=== PATIENT | female | born 1935 | race Caucasian/White ===

== ENCOUNTER → 2016-07-16 | Outpatient (CLI) | payer MEDICARE, BC ==
[2016-07-16 20:18] LABS: ALT 27 U/L (9-52); AST 27 U/L (14-36); Alkaline Phosphatase 73 U/L (38-126); Anion Gap 8 mmol/L; Blood Urea Nitrogen 14 mg/dL (7-17); Calcium 9.3 mg/dL (8.4-10.2); Carbon Dioxide 26 mmol/L (22-30); Chloride 108 mmol/L (98-107); Glucose 90 mg/dL (74-99); Non-African American GFR(MDRD) 60 (>60 ml/min/1.73 sqM); Potassium 4.4 mmol/L (3.5-5.1); Sodium 142 mmol/L (137-145); Total Bilirubin 0.4 mg/dL (0.2-1.3); Total Protein 6.9 g/dL (6.3-8.2)
--- NOTE | 2016-07-16 20:33 | XR ---
EXAMINATION TYPE: XR chest 2V DATE OF EXAM: 07/16/2016 8:05 PM COMPARISON: 03/26/2016 HISTORY: Follow-up renal cancer TECHNIQUE: Frontal and lateral views of the chest are obtained. FINDINGS: There is no heart failure nor confluent pneumonic infiltrate. There are no hilar masses. T horacic aorta is atheromatous. There are clips from right mastectomy. There is no pleural effusion. B ones are osteopenic. IMPRESSION: No active cardiopulmonary disease. No change.
--- NOTE | 2016-07-16 20:36 | CT ---
EXAMINATION TYPE: CT abdomen wo con DATE OF EXAM: 07/16/2016 8:04 PM COMPARISON: NONE HISTORY: Follow-up from right nephrectomy following kidney cancer. CT DLP: 164.80 mGycm Automated exposure control for dose reduction was used. TECHNIQUE: Helical acquisition of images was performed from the lung bases through the top of iliac crest to include entire abdomen. CONTRAST: Performed without Oral Contrast and without IV contrast. FINDINGS: The lung bases are clear of infiltrate. There is no pleural effusion. Liver spleen pancreas appear no rmal. Bile ducts are not dilated. There are multiple calcified gallstones. There is no adrenal mass. There are clips from right nephrectomy. Left kidney shows normal size and c ontour. There is no hydronephrosis. There is no retroperitoneal adenopathy. I see no evidence of a chris wel obstruction. There are spondylotic changes in the lumbar spine. I see no focal bone destruction. IMPRESSION: RIGHT NEPHRECTOMY. ATHEROSCLEROTIC VASCULAR DISEASE. GALLSTONES. NO EVIDENCE OF METASTATIC DISEASE.
== END | disposition home or self-care (01) ==
LOC: RADCTMAIN 19:34
PROVIDERS: ATTEND Urology
DX: C64.1 Malignant neoplasm of right kidney, except renal pelvis (principal); Z90.5 Acquired absence of kidney
CPT/HCPCS: 36415; 71020; 74150; 80053

== ENCOUNTER → 2017-05-10 | Outpatient (CLI) | payer MEDICARE, BC ==
[2017-05-10 09:55] LABS: ALT 29 U/L (9-52); AST 29 U/L (14-36); Albumin 4.4 g/dL (3.5-5.0); Alkaline Phosphatase 73 U/L (38-126); Anion Gap 12 mmol/L; Blood Urea Nitrogen 14 mg/dL (7-17); Calcium 9.8 mg/dL (8.4-10.2); Carbon Dioxide 27 mmol/L (22-30); Chloride 105 mmol/L (98-107); Creatine Kinase 55 U/L (30-135); Glucose 113 mg/dL (74-99); Magnesium 1.9 mg/dL (1.6-2.3); Potassium 4.5 mmol/L (3.5-5.1); Sodium 144 mmol/L (137-145); Total Bilirubin 0.5 mg/dL (0.2-1.3); Total Protein 7.3 g/dL (6.3-8.2)
[2017-05-10 10:08] LABS: Creatine Kinase MB 1.1 ng/mL (0.0-2.4); Troponin I <0.012 ng/mL (0.000-0.034)
[2017-05-11 15:27] LABS: Vitamin D 25 Hydroxy 23.2 ng/mL (30.0-100.0)
== END | disposition home or self-care (01) ==
LOC: LABMAIN 08:33
PROVIDERS: ATTEND Emergency Medicine
DX: R00.2 Palpitations (principal)
CPT/HCPCS: 36415; 80053; 82306; 82550; 82553; 82607; 83735; 84484

== ENCOUNTER → 2017-06-28 | Outpatient (CLI) | payer MEDICARE, BC ==
--- NOTE | 2017-06-28 10:03 | ECHOF ---
Referral Reason:I25.6 Silent myocardial ischemia, M81.0 MEASUREMENTS -------- HEIGHT: 162.6 cm WEIGHT: 58.1 kg BP: 169/75 RVIDd: 2.7 cm (< 3.3) IVSd: 1.0 cm (0.6 - 1.1) LVIDd: 3.6 cm (3.9 - 5.3) LVPWd: 1.1 cm (0.6 - 1.1) IVSs: 1.3 cm LVIDs: 1.8 cm LVPWs: 1.3 cm LAESV Index (A-L): 28.15 ml/m Ao Diam: 2.6 cm (2.0 - 3.7) AV Cusp: 2.8 cm (1.5 - 2.6) MV EXCURSION: 13.536 mm (> 18.000) MV EF SLOPE: 29 mm/s (70 - 150) EPSS: 0.6 cm MV E Benotn: 0.60 m/s MV DecT: 203 ms MV A Benton: 0.96 m/s MV E/A Ratio: 0.63 AR PHT: 594 ms RAP: 5.00 mmHg RVSP: 12.99 mmHg FINDINGS -------- Sinus rhythm. This was a technically good study. The left ventricular size is normal. Left ventricular wall thickness is normal. Overall left vent ricular systolic function is normal with, an EF between 55 - 60 %. The right ventricle is normal in size and function. Normal LA size by volume 22+/-6 ml/m2. The right atrium is normal in size. Aortic valve is trileaflet and is mildly thickened. There is mild aortic regurgitation. The mitral valve leaflets are mildly thickened. Mild mitral annular calcification present. Mild m itral regurgitation is present. Trace tricuspid regurgitation present. The right ventricular systolic pressure, as measured by Dopp ler, is 12.99mmHg. Pulmonic valve appears structurally normal. The aortic root size is normal. Normal inferior vena cava with normal inspiratory collapse consistent with estimated right atrial pre ssure of 5 mmHg. The pericardium is normal. CONCLUSIONS -------- 1. Sinus rhythm. 2. This was a technically good study. 3. The left ventricular size is normal. 4. Left ventricular wall thickness is normal. 5. Overall left ventricular systolic function is normal with, an EF between 55 - 60 %. 6. The right ventricle is normal in size and function. 7. Normal LA size by volume 22+/-6 ml/m2. 8. The right atrium is normal in size. 9. Aortic valve is trileaflet and is mildly thickened. 10. There is mild aortic regurgitation. 11. The mitral valve leaflets are mildly thickened. 12. Mild mitral annular calcification present. 13. Mild mitral regurgitation is present. 14. Trace tricuspid regurgitation present. 15. The right ventricular systolic pressure, as measured by Doppler, is 12.99mmHg. 16. Pulmonic valve appears structurally normal. 17. The aortic root size is normal. 18. Normal inferior vena cava with normal inspiratory collapse consistent with estimated right atrial pressure of 5 mmHg. 19. The pericardium is normal. PERSONNEL MONITOR: Belkys Abel RDCS
== END | disposition home or self-care (01) ==
LOC: RADECHMAIN 07:14
PROVIDERS: ATTEND Family Medicine
DX: I08.0 Rheumatic disorders of both mitral and aortic valves (principal)
CPT/HCPCS: 93306

== ENCOUNTER → 2017-07-01 | Outpatient (CLI) | payer MEDICARE, BC ==
--- NOTE | 2017-07-01 16:30 | BD ---
EXAMINATION TYPE: MG DEXA axial skeleton. DATE OF EXAM: 07/01/2017 CLINICAL HISTORY: 82-year-old female osteoporosis without pathologic fracture Height: 61.5 Weight: 127 FRAX RISK QUESTIONS: Alcohol (3 or more units per day): no Family History (Parent hip fracture): no Glucocorticoids (More than 3mos): no (Ex: prednisone, prednisolone, methylprednisolone, dexamethasone, and hydrocortisone). History of Fracture in Adulthood: no Secondary Osteoporosis: 1. Type 1 Diabetes: no 2. Hyperthyroidism: no 3. Menopause before 45: no 4. Malnutrition: no 5. Chronic liver disease: no Rheumatoid Arthritis: no Current Tobacco Use: no RISK FACTORS HISTORY OF: Family History of Osteoporosis: no Active: yes Diet low in dairy products/other sources of calcium: somewhat- several servings during week Postmenopausal woman: yes Take estrogen and/or progesterone medications: no Lost more than 2 inches in height since high school: possibly..patient states height may have been ab out 64 inches at one time Frequent falls: no Poor Health: no Hyperparathyroidism: no Adrenal Insufficiency: no MEDICATIONS: Prednisone or other steroids: no Thyroid Medications: no Osteoporosis Medications: no Additional Medications: aspirin Additional History: kidney CA- kidney removed about 2 years ago EXAM MEASUREMENTS: Bone mineral densitometry was performed using the [employer]. Bone mineral density as measured about the Lumbar spine is: ----- L1-L4(G/cm2): 1.147 T Score Values are as follows: ----- L2: -0.7 ----- L3: 0.0 ----- L4: -0.6 ----- L1-L4: -0.3 Bone mineral density not previously done at this facility- previously done at physician office Bone mineral density about the R hip (g/cm2): 0.822 Bone mineral density about the L hip (g/cm2): 0.769 T Score values are as follows: -----R Neck: -1.6 -----L Neck: -1.9 -----R Total: -0.4 -----L Total: -0.7 Bone mineral density not previously done at this facility- previously done at physician office IMPRESSION: Osteopenia (T Score between -2.5 and -1). There is slightly increased risk of fracture and the patient may be considered for treatment. Re-Screen 2-5 years. NOTE: T-SCORE=SD OF THE YOUNG ADULT MEAN.
== END | disposition home or self-care (01) ==
LOC: RADBDWWP 07:47
PROVIDERS: ATTEND Family Medicine
DX: M85.88 Other specified disorders of bone density and structure, other site (principal)
CPT/HCPCS: 77080

== ENCOUNTER → 2018-01-22 | Outpatient (CLI) | payer MEDICARE, BC ==
[2018-01-22 11:24] LABS: Basophils # (A) 0.1 k/uL (0-0.2); Basophils % (A) 1 %; Eosinophils # (A) 0.4 k/uL (0-0.7); Eosinophils % (A) 5 %; HCT 42.1 % (34.0-46.0); HGB 13.6 gm/dL (11.4-16.0); Lymphocytes # (A) 2.1 k/uL (1.0-4.8); Lymphocytes % (A) 27 %; MCH 29.1 pg (25.0-35.0); MCHC 32.3 g/dL (31.0-37.0); Monocytes # (A) 0.4 k/uL (0-1.0); Monocytes % (A) 6 %; Neutrophils # (A) 4.5 k/uL (1.3-7.7); Neutrophils % (A) 59 %; Platelet Count 248 k/uL (150-450); RBC 4.68 m/uL (3.80-5.40); RDW 13.4 % (11.5-15.5); WBC 7.7 k/uL (3.8-10.6)
[2018-01-22 17:26] LABS: Albumin 4.5 g/dL (3.80-4.90); Albumin/Globulin Ratio 2.25 (1.20-2.10); Anion Gap 8.7 mmol/L (4.00-12.00); Calcium 9.2 mg/dL (8.7-10.3); Carbon Dioxide 26.3 mmol/L (21.6-31.8); LDL Cholesterol,Calculated 118.4 mg/dL (0.0-131.0); Potassium 4.4 mmol/L (3.5-5.5); Total Bilirubin 0.5 mg/dL (0.3-1.2); Total Protein 6.5 g/dL (6.2-8.2); VLDL Calculation 37.6 mg/dL (5.00-40.00)
[2018-01-22 17:28] LABS: Vitamin D 25 Hydroxy 32.2 ng/mL (30.0-100.0)
[2018-01-22 17:33] LABS: T4, Free (Free Thyroxine) 1.1 ng/dL (0.80-1.80)
[2018-01-22 21:13] LABS: Hemoglobin A1C 5.8 % (4.0-6.0)
== END | disposition home or self-care (01) ==
LOC: LABWHC1 09:39
PROVIDERS: ATTEND Family Medicine
DX: Z00.00 Encounter for general adult medical examination without abnormal findings (principal); E78.5 Hyperlipidemia, unspecified; E55.9 Vitamin D deficiency, unspecified; R03.0 Elevated blood-pressure reading, without diagnosis of hypertension; R73.01 Impaired fasting glucose
CPT/HCPCS: 36415; 80053; 80061; 82306; 82607; 83036; 84439; 84443; 85025

== ENCOUNTER → 2018-04-18 | Outpatient (CLI) | payer MEDICARE, BC ==
--- NOTE | 2018-04-18 10:32 | XR ---
EXAMINATION TYPE: XR chest 2V DATE OF EXAM: 04/18/2018 COMPARISON: Chest x-ray January 28, 2017 HISTORY: Kidney cancer. TECHNIQUE: Frontal and lateral views of the chest are obtained. FINDINGS: There is chronic parenchymal change without suspicious focal air space opacity, pleural ef fusion, or pneumothorax seen. The cardiac silhouette size is mildly enlarged. Numerous surgical cli ps from right-sided mastectomy are redemonstrated. Surgical clips in the right abdomen from nephrecto my are partially imaged. The osseous structures are intact. IMPRESSION: No acute cardiopulmonary process. No significant change from prior.
--- NOTE | 2018-04-18 12:03 | CT ---
EXAMINATION TYPE: CT abdomen wo con DATE OF EXAM: 04/18/2018 HISTORY: Right kidney cancer, removed [address] DLP: 174.9 mGycm. Automated Exposure Control for Dose Reduction was Utilized. TECHNIQUE: CT scan of the abdomen is performed with oral but without IV contrast. COMPARISON: CT abdomen July 16, 2016 FINDINGS: Within the limitations of a non-contrast study, the following observations are made. LUNG BASES: Cardiomegaly is redemonstrated. There is partial visualization of coronary artery calcifi cation and/or stent in the RCA distribution similar to prior. LIVER/GB: Numerous large calcified gallstones in gallbladder again seen. PANCREAS: No significant abnormality is seen. SPLEEN: No significant abnormality is seen. ADRENALS: No significant abnormality is seen. KIDNEYS: Numerous clips from right-sided nephrectomy are redemonstrated. No suspicious recurrent mass is present. BOWEL: Small hiatal hernia is noted. Stomach is felt within normal limits. Duodenal sweep and proxima l small bowel loops are poorly opacified making evaluation suboptimal. Oral contrast extends to hepat ic flexure. There is no suspicious small or large bowel dilatation. LYMPH NODES: No greater than 1cm abdominal lymph nodes are appreciated. OSSEOUS STRUCTURES: There is multilevel vacuum disc phenomenon and disc space narrowing throughout th e thoracolumbar spine with multilevel spurring. Most prominent spinal canal effacement is L3-L4 level due to disc herniation and facet arthropathy axial image 40. Slight spondylolisthesis is seen in low er lumbar levels without pars defect. OTHER: Mild to moderate calcified plaque of aorta extends into branch vessels. IMPRESSION: No recurrent mass or adenopathy identified to suggest neoplastic recurrence. No significa nt change from prior CT.
== END ==
LOC: RADCTMAIN 09:59
PROVIDERS: ATTEND Urology
DX: C64.1 Malignant neoplasm of right kidney, except renal pelvis (principal)
CPT/HCPCS: 71046; 74150

== ENCOUNTER → 2019-04-10 | Outpatient (CLI) | payer MEDICARE, BC ==
--- NOTE | 2019-04-10 17:18 | XR ---
EXAMINATION TYPE: XR chest 2V DATE OF EXAM: 04/10/2019 COMPARISON: Prior chest x-ray 04/18/2018 HISTORY: Renal cancer TECHNIQUE: Frontal and lateral views of the chest are obtained. FINDINGS: There is no significant change. IMPRESSION: Postop changes. No acute cardiopulmonary disease.
== END | disposition home or self-care (01) ==
LOC: RADXRMAIN 16:17
PROVIDERS: ATTEND Urology
DX: Z08 Encounter for follow-up examination after completed treatment for malignant neoplasm (principal); Z85.528 Personal history of other malignant neoplasm of kidney; Z98.890 Other specified postprocedural states
CPT/HCPCS: 71046

== ENCOUNTER → 2019-04-10 | Outpatient (CLI) | payer MEDICARE, BC ==
--- NOTE | 2019-04-11 09:25 | MM ---
Reason for exam: additional evaluation requested from prior study. Last mammogram was performed 17 years and 9 months ago. History: Patient is postmenopausal, has history of other cancer at age 79, and has history of breast cancer at age 69. Family history of breast cancer in sister at age 50 and breast cancer in mother at age 60. Lumpectomy of the left breast, 2014. Radiation therapy of the left breast, 2013. Mastectomy of the right breast, 2005. Physical Findings: Nurse did not find any significant physical abnormalities on exam. MG 3D Diag Mammo W/Cad LT CC, MLO, and XCCL view(s) were taken of the left breast. Prior study comparison: April 08, 2018, mammogram. There are scattered fibroglandular densities. Benign appearing calcifications in the left breast. Left axillary lymph nodes were not seen on the prior as XCCL was not performed. Ultrasound will be performed to evaluate cortical thickness. These results were verbally communicated with the patient and result sheet given to the patient on 04/10/19. ASSESSMENT: Incomplete: need additional imaging evaluation, BI-RAD 0 RECOMMENDATION: Ultrasound of the left breast. (axilla)
--- NOTE | 2019-04-11 09:26 | USB ---
Reason for exam: additional evaluation requested from abnormal screening. History: Patient is postmenopausal, has history of other cancer at age 79, and has history of breast cancer at age 69. Family history of breast cancer in sister at age 50 and breast cancer in mother at age 60. Lumpectomy of the left breast, 2013. Radiation therapy of the left breast, 2013. Mastectomy of the right breast, 2005. US Breast Limited LT Left limited breast ultrasound including focal area of concern, retroareolar and axilla demonstrates a 0.8 x 0.5 x 0.9cm lymph node at 1 o'clock, morphologically normal, non-enlarged. 1 o'clock lumpectomy site, avascular. These results were verbally communicated with the patient and result sheet given to the patient on 04/10/19. ASSESSMENT: Benign, BI-RAD 2 RECOMMENDATION: Follow-up diagnostic mammogram of the left breast in 1 year.
== END | disposition home or self-care (01) ==
LOC: LABWHC1 14:56
PROVIDERS: ATTEND Surgery
DX: Z08 Encounter for follow-up examination after completed treatment for malignant neoplasm (principal); R92.8 Other abnormal and inconclusive findings on diagnostic imaging of breast; Z85.3 Personal history of malignant neoplasm of breast
CPT/HCPCS: 77065; 76642; G0279; 71046; 77061

== ENCOUNTER → 2019-09-13 | Outpatient (CLI) | payer MEDICARE, BC ==
--- NOTE | 2019-09-13 14:35 | BD ---
EXAMINATION TYPE: Axial Bone Density DATE OF EXAM: 09/13/2019 COMPARISON: NONE CLINICAL HISTORY: 84-year-old female postmenopausal screening without HRT Nuclear Medicine Study in the last 2 weeks: NO Barium Study in the last week: NO : NO Height: 5 FT 2 IN Weight: 121 FRAX RISK QUESTIONS: Alcohol (3 or more units per day): NO Family History (Parent hip fracture): NO Glucocorticoids (More than 3mos): NO (Ex: prednisone, prednisolone, methylprednisolone, dexamethasone, and hydrocortisone). History of Fracture in Adulthood: NO Secondary Osteoporosis: 1. Type 1 Diabetes: NO 2. Hyperthyroidism: NO 3. Menopause before 45: NO 4. Malnutrition: NO 5. Chronic liver disease: NO Rheumatoid Arthritis: NO Current Tobacco Use: NO RISK FACTORS HISTORY OF: Active: YES Postmenopausal woman: AGE 47 MEDICATIONS: Additional Medications: NONE Additional History: EXAM MEASUREMENTS: Bone mineral densitometry was performed using the [employer] System. Bone mineral density as measured about the Lumbar spine is: ----- L1-L4(G/cm2): 1.167 T Score Values are as follows: ----- L2: -0.2 ----- L3: -0.1 ----- L4: -0.7 ----- L1-L4: -0.1 Bone mineral density has: INCREASED 1.0 % since study of: 2018 Bone mineral density about the R hip (g/cm2): 0.800 Bone mineral density about the L hip (g/cm2): 0.780 T Score values are as follows: -----R Neck: -1.7 -----L Neck: -1.9 -----R Total: -0.7 -----L Total: -0.8 Bone mineral density has: DECREASED -2.5 % since study of: 2018 IMPRESSION: Osteopenia (T Score between -2.5 and -1). There is slightly increased risk of fracture and the patient may be considered for treatment. Re-Screen 2-5 years. NOTE: T-SCORE=SD OF THE YOUNG ADULT MEAN.
== END | disposition home or self-care (01) ==
LOC: RADBDWWP 09:44
PROVIDERS: ATTEND Surgery
DX: Z13.820 Encounter for screening for osteoporosis (principal); Z78.0 Asymptomatic menopausal state
CPT/HCPCS: 77080

== ENCOUNTER → 2020-03-18 | Outpatient (CLI) | payer MEDICARE, BC | END | disposition home or self-care (01) | LOC: LABMAIN 16:09 | PROVIDERS: ATTEND Family Medicine | DX: Z20.828 Contact with and (suspected) exposure to other viral communicable diseases (principal) | CPT/HCPCS: 87635 ==

== ENCOUNTER → 2020-04-09 | Outpatient (CLI) | payer MEDICARE, BC ==
--- NOTE | 2020-04-09 12:20 | XR ---
EXAMINATION TYPE: XR chest 2V DATE OF EXAM: 04/09/2020 COMPARISON: 04/10/2019 TECHNIQUE: PA and lateral views submitted. HISTORY: Shortness of breath FINDINGS: The lungs are clear and there is no pneumothorax, pleural effusion, or focal pneumonia. Hypertrophic and degenerative change of the spine. Surgical clips overlying the right chest and axill a. Arthropathy of the shoulders. No overt failure or pneumothorax. No focal pneumonia. Hyperinflation suggests COPD. Vague 5 mm nodule right upper lobe. IMPRESSION: 1. COPD. There is a vague nodule measuring 5 mm in the right upper lobe. Correlate with CT scan.
--- NOTE | 2020-04-09 12:22 | NM ---
EXAMINATION TYPE: NM pul vent and perfuse DATE OF EXAM: 04/09/2020 COMPARISON: 04/09/2020 HISTORY: Abnormal coagulation profile TECHNIQUE: Utilizing inhalation of 38.3 mCi Tc 99m DTPA aerosol and intravenous injection of 5.1 mCi of Tc 99m MAA, ventilation and perfusion images are acquired post injection in multiple projections. FINDINGS: There are patchy filling defect seen on both ventilation and perfusion images within the upper lobes. Findings are compatible with matched defects. Ventilation images are somewhat limited due to reduced radiotracer uptake likely secondary to COPD. Report called on 04/18/2020 at 12:19 PM. IMPRESSION: Intermediate probability for pulmonary embolism.
--- NOTE | 2020-04-09 12:49 | US ---
EXAMINATION TYPE: US venous doppler duplex LE BI DATE OF EXAM: 04/09/2020 12:27 PM COMPARISON: NONE CLINICAL HISTORY: 84-year-old female R79.1 ABNORMAL COAGULATION PROFILE. Elevated D-Dimer SIDE PERFORMED: Bilateral TECHNIQUE: The lower extremity deep venous system is examined utilizing real time linear array sonog mackenzie with graded compression, doppler sonography and color-flow sonography. FINDINGS: VESSELS IMAGED: Common Femoral Vein Deep Femoral Vein Greater Saphenous Vein * Femoral Vein Popliteal Vein Small Saphenous Vein * Proximal Calf Veins (* superficial vessels) Right Leg: no evidence of DVT Left Leg: no evidence of DVT IMPRESSION: No evidence for DVT within the bilateral lower extremities imaged from the groin to the upper calves.
== END | disposition home or self-care (01) ==
LOC: RADNMMAIN 10:20
PROVIDERS: ATTEND Family Medicine
DX: J44.9 Chronic obstructive pulmonary disease, unspecified (principal); R91.1 Solitary pulmonary nodule; R79.1 Abnormal coagulation profile
CPT/HCPCS: 71046; 93970; 78582; A9540; A9567

== ENCOUNTER → 2020-04-12 | Outpatient (CLI) | payer MEDICARE, BC ==
--- NOTE | 2020-04-15 08:15 | MM ---
Reason for exam: additional evaluation requested from prior study. Last mammogram was performed 1 year ago. History: Patient is postmenopausal, has history of other cancer at age 79, and has history of breast cancer at age 69. Family history of breast cancer in sister at age 50 and breast cancer in mother at age 60. Lumpectomy of the left breast, 2013. Radiation therapy of the left breast, 2013. Mastectomy of the right breast, 2005. Physical Findings: Nurse did not find any significant physical abnormalities on exam. MG 3D Diag Mammo W/Cad LT CC, MLO, XCCL, LM, spot compression CC, and spot compression MLO view(s) were taken of the left breast. Prior study comparison: April 10, 2019, left breast MG 3d diag mammo w/cad LT. April 08, 2018, mammogram. The breast tissue is heterogeneously dense. This may lower the sensitivity of mammography. Post surgical and post therapy change posterior left upper outer quadrant. Anterior areas of asymmetric density disperse on additional views. These results were verbally communicated with the patient and result sheet given to the patient on 04/12/20. ASSESSMENT: Benign, BI-RAD 2 RECOMMENDATION: Routine screening mammogram of the left breast in 1 year.
== END | disposition home or self-care (01) ==
LOC: RADMAMWWP 14:13
PROVIDERS: ATTEND Surgery
DX: Z08 Encounter for follow-up examination after completed treatment for malignant neoplasm (principal); Z85.3 Personal history of malignant neoplasm of breast; Z90.11 Acquired absence of right breast and nipple
CPT/HCPCS: 77065; G0279; 77061

== ENCOUNTER → 2020-05-06 | Outpatient (CLI) | payer MEDICARE, BC ==
--- NOTE | 2020-05-06 14:48 | USB ---
Reason for exam: additional evaluation requested from prior study. History: Patient is postmenopausal, has history of other cancer at age 79, and has history of breast cancer at age 69. Family history of breast cancer in sister at age 50 and breast cancer in mother at age 60. Lumpectomy of the left breast, 2013. Radiation therapy of the left breast, 2013. Mastectomy of the right breast, 2005. Physical Findings: Nurse did not find any significant physical abnormalities on exam. US Breast Limited RT Right limited breast ultrasound including focal area of concern, retroareolar and axilla demonstrates no cystic or solid lesion seen. Scanned 6-10 o'clock. These results were verbally communicated with the patient and result sheet given to the patient on 05/06/20. ASSESSMENT: Negative, BI-RAD 1 RECOMMENDATION: Follow-up diagnostic mammogram of the right breast in 11 months. Manage on a clinical basis with regard to any suspicious palpable area. Back on schedule for March 2021.
== END | disposition home or self-care (01) ==
LOC: RADUSWWP 13:45
PROVIDERS: ATTEND Surgery
DX: N63.13 Unspecified lump in the right breast, lower outer quadrant (principal); Z85.3 Personal history of malignant neoplasm of breast

== ENCOUNTER → 2020-05-22 | Outpatient (CLI) | payer MEDICARE, BC ==
--- NOTE | 2020-05-22 14:22 | XR ---
EXAMINATION TYPE: XR chest 2V DATE OF EXAM: 05/22/2020 COMPARISON: 04/09/2020 TECHNIQUE: PA and lateral views submitted. HISTORY: Abnormal x-ray FINDINGS: The lungs are clear and there is no pneumothorax, pleural effusion, or focal pneumonia. Hypertrophic and degenerative change of the spine. Surgical clips overlying the right chest and axilla. Arthropath y of the shoulders. No overt failure or pneumothorax. No focal pneumonia. Hyperinflation suggests BUILDING PRINCIPAL D. Vague 5 mm nodule right upper lobe noted on the prior exam not seen with certainty on today's exam and May BE related to superimposed structures on prior exam. IMPRESSION: 1. COPD. Vague lung nodule noted on the prior exam not seen with certainty on today's exam.
== END | disposition home or self-care (01) ==
LOC: RADXRMAIN 13:51
PROVIDERS: ATTEND Surgery
DX: J44.9 Chronic obstructive pulmonary disease, unspecified (principal)
CPT/HCPCS: 71046

== ENCOUNTER → 2020-05-22 | Outpatient (CLI) | payer MEDICARE, BC ==
[2020-05-23 03:47] LABS: African American GFR (CKD) 67.1 (60.0-200.0); Non-African American GFR(CKD) 57.9 (60.0-200.0)
== END | disposition home or self-care (01) ==
LOC: LABWHC1 14:15
PROVIDERS: ATTEND Surgery
DX: Z09 Encounter for follow-up examination after completed treatment for conditions other than malignant neoplasm (principal); Z86.16 Personal history of COVID-19
CPT/HCPCS: 36415; 82565; 83615; 85379

== ENCOUNTER → 2021-04-30 | Outpatient (CLI) | payer MEDICARE, BC ==
--- NOTE | 2021-04-30 09:22 | MM ---
Reason for exam: additional evaluation requested from prior study. Last mammogram was performed 1 year and 1 month ago. History: Patient is postmenopausal, has history of other cancer at age 79, and has history of breast cancer at age 69. Family history of breast cancer in sister at age 50 and breast cancer in mother at age 60. Lumpectomy of the left breast, 2013. Radiation therapy of the left breast, 2013. Mastectomy of the right breast, 2005. Physical Findings: Nurse Summary: hard 1.5cm nodule in the left breast at 1 o'clock (nurse TM). MG 3D Diag Mammo W/Cad LT CC, MLO, and XCCL view(s) were taken of the left breast. Prior study comparison: April 12, 2020, left breast MG 3d diag mammo w/cad LT. April 10, 2019, left breast MG 3d diag mammo w/cad LT. The breast tissue is heterogeneously dense. This may lower the sensitivity of mammography. No suspicious calcifications are seen. Post operative scar upper outer left breast from previous lumpectomy. These results were verbally communicated with the patient and result sheet given to the patient on 04/30/21. ASSESSMENT: Incomplete: need additional imaging evaluation, BI-RAD 0 RECOMMENDATION: Ultrasound of the left breast. (palpable) Manage patient on a clinical basis.
--- NOTE | 2021-04-30 09:23 | USB ---
Reason for exam: additional evaluation requested from abnormal screening. History: Patient is postmenopausal, has history of other cancer at age 79, and has history of breast cancer at age 69. Family history of breast cancer in sister at age 50 and breast cancer in mother at age 60. Lumpectomy of the left breast, 2013. Radiation therapy of the left breast, 2013. Mastectomy of the right breast, 2005. US Breast Limited LT Left limited breast ultrasound including focal area of concern, retroareolar and axilla demonstrates a 13 x 9 x 24mm irregular, solid lesion at 1 o'clock BB, likely reflects lumpectomy site. These results were verbally communicated with the patient and result sheet given to the patient on 04/30/21. ASSESSMENT: Benign, BI-RAD 2 RECOMMENDATION: Follow-up diagnostic mammogram of the left breast in 1 year. Manage patient on a clinical basis.
== END | disposition home or self-care (01) ==
LOC: RADMAMWWP 07:28
PROVIDERS: ATTEND Surgery
DX: N63.21 Unspecified lump in the left breast, upper outer quadrant (principal); Z85.3 Personal history of malignant neoplasm of breast; Z80.3 Family history of malignant neoplasm of breast
CPT/HCPCS: 77065; 76642; G0279; 77061